=== PATIENT | male | born 1975 | race Caucasian/White ===

== ENCOUNTER → 2018-04-09 16:55 | Emergency (ER) | payer BC ==
--- NOTE | 2018-04-09 18:16 | RAD ---
INDICATION: Ankle injury COMPARISON: None TECHNIQUE: AP, lateral, and oblique views were obtained. FINDINGS: There is no acute fracture. Ankle mortise is intact. There is anterior lateral soft tissue swelling. IMPRESSION: SOFT TISSUE SWELLING. NO ACUTE FRACTURE.
--- NOTE | 2018-04-09 19:05 | ED ---
Lower Extremity - HPI Summary HPI Summary: Complains of persistent right ankle pain after right ankle sprain 2 weeks ago. States pain is not resolving though swelling has resolved. Patient states occasional pain with walking that is sharp, intermittent, rated 10 out of 10. Pain better with sitting. Denies any other pain or injury. No anti-coag. - History of Current Complaint Chief Complaint: EDExtremityLower Stated Complaint: RT ANKLE ISSUE Time Seen by Provider: 04/09/18 17:32 Hx Obtained From: Patient Onset of Pain: Immediate, Days Onset/Duration: Weeks Severity Initially: Moderate Severity Currently: Moderate Pain Intensity: 4 Pain Scale Used: 0-10 Numeric Timing: Intermittent Location: Is Discrete @ Character Of Pain: Sharp Associated Signs And Symptoms: Positive: Negative Aggravating Factor(s): Ambulation, Weight Bearing Alleviating Factor(s): Rest Able to Bear Weight: Yes - Allergies/Home Medications Allergies/Adverse Reactions: Allergies Allergy/AdvReac Type Severity Reaction Status Date / Time No Known Allergies Allergy Verified 04/09/18 16:59 Home Medications: Home Medications NK [No Home Medications Reported] 04/09/18 [History Confirmed 04/09/18] PMH/Surg Hx/FS Hx/Imm Hx Endocrine/Hematology History: Denies: Hx Anticoagulant Therapy Cardiovascular History: Denies: Hx Cardiac Arrest History: Denies: Hx Dialysis Neurological History: Denies: Hx CVA Infectious Disease History: No Infectious Disease History: Denies: Traveled Outside the [place] in Last 30 Days - Social History Alcohol Use: None Substance Use Type: Reports: None Smoking Status (MU): Never Smoked Tobacco Review of Systems Constitutional: Negative Eyes: Negative ENT: Negative Cardiovascular: Negative Respiratory: Negative Gastrointestinal: Negative Genitourinary: Negative Positive: Arthralgia Skin: Negative Neurological: Negative Psychological: Normal All Other Systems Reviewed And Are Negative: Yes Physical Exam - Summary Physical Exam Summary: No erythema, extra warmth, ecchymosis, swelling, deformity noted to right ankle. Tenderness with palpation of medial aspect of right ankle. PMS intact distally Triage Information Reviewed: Yes Vital Signs On Initial Exam: Initial Vitals Temp Pulse Resp BP Pulse Ox 97.5 F 96 16 128/76 98 04/09/18 16:57 04/09/18 16:57 04/09/18 16:57 04/09/18 16:57 08/15/18 16:57 Vital Signs Reviewed: Yes Appearance: Positive: Well-Appearing Skin: Positive: Warm Head/Face: Positive: Normal Head/Face Inspection Eyes: Positive: Normal Neck: Positive: Supple Respiratory/Lung Sounds: Positive: Clear to Auscultation Cardiovascular: Positive: Normal Abdomen Description: Positive: Nontender Musculoskeletal: Positive: Normal Neurological: Positive: Normal Psychiatric: Positive: Normal AVPU Assessment: Alert - [place] Coma Scale Best Eye Response: 4 - Spontaneous Best Motor Response: 6 - Obeys Commands Best Verbal Response: 5 - Oriented Coma Scale Total: 15 Diagnostics - Vital Signs Vital Signs Temp Pulse Resp BP Pulse Ox 04/09/18 16:57 97.5 F 96 16 128/76 98 - Laboratory Lab Statement: Any lab studies that have been ordered have been reviewed, and results considered in the medical decision making process. - Radiology ankle Xray Interpretation: No Acute Changes Radiology Interpretation Completed By: Radiologist Lower Extremity Course/Dx - Course Course Of Treatment: Complains of persistent right ankle pain after right ankle sprain 2 weeks ago. States pain is not resolving though swelling has resolved. Patient states occasional pain with walking that is sharp, intermittent, rated 10 out of 10. Pain better with sitting. Denies any other pain or injury. No anti-coag. Physical exam:No erythema, extra warmth, ecchymosis, swelling, deformity noted to right ankle. Tenderness with palpation of medial aspect of right ankle. PMS intact distally. X-ray negative. Vital signs normal. Patient from out of town will follow-up with orthopedics when he gets back. Ankle brace applied for support. Ice, elevation, ibuprofen. - Diagnoses Provider Diagnoses: Right ankle strain Discharge - Sign-Out/Discharge Documenting (check all that apply): Patient Departure - Discharge Plan Condition: Stable Disposition: HOME Patient Education Materials: Ankle Strain (ED) Referrals: No Primary Care Phys,NOPCP [Primary Care Provider] - Additional Instructions: Follow-up with your orthopedics provider in [place] for further evaluation of continuing right ankle pain. Return to the ED for any new or worsening symptoms - Billing Disposition and Condition Condition: STABLE Disposition: Home
[2018-04-09 19:27] VITALS: BP 121/76
== END | disposition home or self-care (01) ==
LOC: ED 16:55
DX: S96.911A Strain of unspecified muscle and tendon at ankle and foot level, right foot, initial encounter (principal); X58.XXXA Exposure to other specified factors, initial encounter; Y92.9 Unspecified place or not applicable
CPT/HCPCS: 99282